=== PATIENT | female | born 1985 | race Caucasian/White ===

== ENCOUNTER → 2025-06-28 | Outpatient (CLI) | payer MEDICAID, SELFPAY ==
--- NOTE | 2025-06-28 09:30 | XR_ITS ---
EXAMINATION: Esophagram standard Fluoroscopy 25 spot fluoroscopic films of the esophagus Upright PA chest single view Upright soft tissue lateral neck single view Date and time: June 28, 2025, 0913 hours INDICATIONS: Difficulty swallowing solid foods beginning 2 months ago TECHNIQUE AND FINDINGS: Patient swallowed thin barium with 27 spot fluoroscopic films of the esophagus obtained Upright PA chest single view demonstrates normal heart size Significant thoracic dextroscoliosis Soft tissue lateral neck single view demonstrates normal epiglottis, moderate degenerative disc disease C5-C6, C6-C7 Primary peristaltic esophageal waves noted Numerous secondary and tertiary esophageal contractions Continuous gastroesophageal reflux with stricture at the gastroesophageal junction, 70% Fluoroscopy 0.19 minutes IMPRESSION: Severe esophageal dysmotility Continuous gastroesophageal reflux. Significant stricture at the gastroesophageal junction, consider gastroesophageal reflux
== END | disposition home or self-care (01) ==
LOC: CDIM 08:46
PROVIDERS: PCP Student in an Organized Health Care Education/Training Program; Referring Provider Student in an Organized Health Care Education/Training Program; Visit Provider Student in an Organized Health Care Education/Training Program
DX: K21.9 Gastro-esophageal reflux disease without esophagitis (principal); K22.89 Other specified disease of esophagus
CPT/HCPCS: 74220; A4649